=== PATIENT | female | born 1965 | race Caucasian/White ===

== ENCOUNTER 2016-05-03 07:59 | Day surgery (SDC) | payer BC ==
--- NOTE | ~2016-05-03 | EGD ---
EGD REPORT [facility] [address] [id number] NAME: LULU BOLDEN : [birth year] STATUS : REG [facility]#: [id number] AGE: 51 ADM/REG DATE : 05/03/16 MR#: [id number] REPORT SERV DATE: 05/03/16 DICTATED BY: TARI VEE DATE: 05/03/16 REPORT STATUS : Draft TRANSCRIBED BY: [facility] DATE: 05/03/16 Pulmonology Patient Name: Lulu Bolden Procedure Date: 05/03/2016 10:31 AM Date of : 1965 Attending MD: RICO VEE MD Procedure Date No Time: 05/03/2016 Procedure: Flexible Bronchoscopy Indications: Tracheal stenosis s/p T tube with increasing audible noisy breathing and congestion Providers: RICO VEE MD Referring MD: MIRIAM RAM Medicines: Lidocaine 2% 20 mL Complications: No immediate complications Procedure: Pre-Anesthesia Assessment: - A History and Physical has been performed. Patient meds and allergies have been reviewed. The risks and benefits of the procedure and the sedation options and risks were discussed with the patient. All questions were answered and informed consent was obtained. Patient identification and proposed procedure were verified prior to the procedure by the physician and the nurse in the pre-procedure area in the procedure room. Mental Status Examination: normal. Respiratory Examination: Noisy breathing emanating from the t-tube CV Examination: normal and RRR, no murmurs, no S3 or S4. ASA Grade Assessment: IV - A patient with severe systemic disease that is a constant threat to life. After reviewing the risks and benefits, the patient was deemed in satisfactory condition to undergo the procedure. The anesthesia plan was to use general anesthesia. Immediately prior to administration of medications, the patient was re-assessed for adequacy to receive sedatives. The heart rate, respiratory rate, oxygen saturations, blood pressure, adequacy of pulmonary ventilation, and response to care were monitored throughout the procedure. The physical status of the patient was re-assessed after the procedure. After obtaining informed consent, the Bronchoscope was introduced through the mouth, via laryngeal mask airway and advanced to the tracheobronchial tree. The procedure was accomplished without difficulty. The patient tolerated the procedure well. Findings: The laryngeal mask airway is in normal position. The vocal cords move normally with breathing. The t-tube was partially impacted by a EGD REPORT [address] [place]. [address] NAME: LULU BOLDEN : [birth year] STATUS : REG [facility] PAT#: [id number] AGE: 51 ADM/REG DATE : 05/03/16 MR#: [id number] REPORT SERV DATE: 05/03/16 DICTATED BY: TARI VEE DATE: 05/03/16 REPORT STATUS : Draft TRANSCRIBED BY: [employer] DATE: 05/03/16 combination of thick mucus and biofilm. Mucomyst 20% 8 ml was sprayed and directly instilled into the t-tube. Clearing of secretions took approximately 15 minutes. No granulation tissue was noted. The distal trachea is of normal caliber. The milagros is sharp. The tracheobronchial tree was examined to at least the first subsegmental level. Bronchial mucosa and anatomy are normal. Impression: Tracheal stenosis s/p T tube with thick secretions causing partial obstruction of the T-tube. Recommendation: Recommend Saline bullets to be instilled through the stomal limb of the T-tube Albuterol 2.5 mLs Neb TID Mucomyst 10 or 20% 4 mLs Neb TID The staff faxed an order to [facility] and I also gave a copy to Ms. Bolden's who will follow up on the orders. If any issues arise, he is to contact me at [phone] Bronchoscopy in 3 months for airway inspection Attending Participation: I personally performed the entire procedure. RICO VEE MD 05/03/2016 12:50 PM This report has been signed electronically. Number of Addenda: 0 Note Initiated On: 05/03/2016 10:31 AM [address] [id number]
[~2016-05-03 07:59] MED LIST: ALBUTEROL0.63 MG/3 INH; BISR PR; CELEBREX2 PO; CELEXA20 PO; DSS PO; I10 PO; KEPPRAUDL PO; LIDODERM TOP; LIOR10 PO; MELATONIN5 M1 PO; MOMUD PO; MULTI-VIT HP PO; MULTIVITAMI1 PO; NORCO1 TA2 PO; PEP20 PO; SEROQUEL1C PO; SEROQUEL25 PO; SEROQUEL50 MG PO; T PO; TRAZ50 PO; ULTRAM50 PO; VOLTAREN1 % TOP; X5 PO; XANAX1 MG PO; ZOFRAN4 PO; [UNRECOGNIZED DRUG - MIXTURE] PEG
[2016-05-03 08:46] LABS: INTERNATIONAL NORMAL RATI 1.1 UNITS (-); PROTIME (NOT ORD) 14.2 SEC (12.0-14.5)
== END 2016-05-03 23:59 | disposition home or self-care (01) ==
LOC: DMU 07:59
PROVIDERS: Internal Medicine
PROC: 0BJ08ZZ Inspection of Tracheobronchial Tree, Via Natural or Artificial Opening Endoscopic (ICD-10-PCS; principal; 2016-05-03 09:30)
DX: J39.8 Other specified diseases of upper respiratory tract (principal); K21.9 Gastro-esophageal reflux disease without esophagitis; F41.9 Anxiety disorder, unspecified; F32.9 Major depressive disorder, single episode, unspecified; Z79.899 Other long term (current) drug therapy; Z98.890 Other specified postprocedural states
CPT/HCPCS: 71010; 84703; 85610; 85730; 93005; 94640; A9270-GY; J2250; J3010

== ENCOUNTER 2016-08-26 20:40 | Emergency (ER) | payer OTHER, BC ==
[2016-08-26 17:26] LABS: BASOPHILS 0.1 %; BASOPHILS ABSOLUTE 0.01 10/3/uL (0.0-0.16); EOSINOPHILS 4.5 %; EOSINOPHILS ABSOLUTE 0.32 10/3/uL (0.0-0.53); HEMATOCRIT 35.8 % (36.0-48.0); HEMOGLOBIN 11.6 g/dL (12.0-16.0); IMMATURE GRANULOCYTES 0.3 %; IMMATURE GRANULOCYTES ABSOLUTE 0.02 10/3/uL (0.0-0.11); LYMPHOCYTES 35.8 %; LYMPHOCYTES ABSOLUTE 2.56 10/3/uL (0.67-4.30); MEAN CORPUS HGB CONC 32.4 g/dL (32.0-36.0); MEAN CORPUSCULAR HEMOGLOB 28.6 pg (26.0-34.0); MEAN CORPUSCULAR VOLUME 88.2 fL (80-100); MEAN PLATELET VOLUME 8.7 fL (9.2-13.0); MONOCYTES 8.4 %; NEUTROPHILS 50.9 %; NEUTROPHILS ABSOLUTE 3.65 10/3/uL (2.02-8.40); PLATELET COUNT 287 10/3/uL (150-400); RED CELL COUNT 4.06 10/6/uL (4.0-5.6); WHITE BLOOD CELLS 7.2 10/3/uL (4.5-10.5)
[2016-08-26 17:27] LABS: MANUAL DIFF NO %
[2016-08-26 17:34] LABS: PROTIME (NOT ORD) 13.5 SEC (12.0-14.5)
[2016-08-26 17:42] LABS: BUN (BLOOD UREA NITROGEN) 9 MG/DL (6-23); CALCIUM, SERUM 8.5 MG/DL (8.5-10.4); CHEST PAIN PROFILE TAT 0 Hrs 22 Mins; CHLORIDE, SERUM 108 MMOL/L (96-112); CREATININE 0.76 MG/DL (0.55-1.02); GFR AFRICAN AMERICAN 105 ML/MIN (>=60); GFR NON AFRICAN AMERICAN 91 ML/MIN (>=60); POTASSIUM, SERUM 3.9 MMOL/L (3.5-5.3); SODIUM, SERUM 142 MMOL/L (135-148); TROPONIN I <0.02 NG/ML (<0.05)
[2016-08-26 17:44] LABS: CO2 (CARBON DIOXIDE) 27 MMOL/L (24-34); GLUCOSE, SERUM 118 MG/DL (60-99)
== END 2016-08-26 23:06 | disposition home or self-care (01) ==
LOC: ER 20:40
PROVIDERS: Emergency Medicine
DX: J03.90 Acute tonsillitis, unspecified (principal); Z79.899 Other long term (current) drug therapy
CPT/HCPCS: 70490; 71020; 80048; 83735; 84484; 85025; 85610; 85730; 93005; 99284